=== PATIENT | male | born 1995 | race Two or more races ===

== ENCOUNTER 2023-12-03 15:34 | Emergency (ER) | payer OTHER ==
[~2023-12-03] VITALS: Ht 180.3 cm; Wt 110.5 kg
[2023-12-03 16:50] VITALS: BP 128/84; PULSE 96; RESP 18; TEMP 98.6; O2SAT 96
[2023-12-03] MEDS ORDERED: IBUP-1456 PO (17:02)
[2023-12-03] MEDS: KETOROLAC TROMETH 60MG/2ML VIAL IM ONE (17:19)
== END 2023-12-03 17:25 | disposition home or self-care (01) ==
LOC: ER 15:42
DX: S46.811A Strain of other muscles, fascia and tendons at shoulder and upper arm level, right arm, initial encounter (principal); Z79.899 Other long term (current) drug therapy; X50.9XXA Other and unspecified overexertion or strenuous movements or postures, initial encounter; Y93.89 Activity, other specified; Y92.89 Other specified places as the place of occurrence of the external cause; Y99.0 Civilian activity done for income or pay
CPT/HCPCS: 73030; 96372; 99283; J1885